=== PATIENT | male | born 1950 | race African-American/Black ===

== ENCOUNTER → 2016-03-14 | Outpatient (CLI) | payer OTHER ==
[~2016-03-14] MED LIST: ACET-1311 PO; ACET325T96 PO; ASPEC81 PO; BACL10TA PO; CHOL2000 PO; CLC100 PO; CRG3125 PO; DIPH1TAB PO; DOXY-300 PO; FLUT1INH PEG; HYDR-5688 PO; LSX20 PO; MAGIC CUP PO; NAPR-1169 PO; PRD20 PO; SENN-63 PO; SYMIN INH; TRMO115 EXT
[2016-03-14 10:49] LABS: MEAN CORPUSCULAR HGB CONC 32.9 g/dl (32-36); MEAN PLATELET VOLUME 11.3 fL (7.4-10.4); PLATELET COUNT 256 K/uL (130-400)
[2016-03-14 10:58] LABS: BLOOD UREA NITROGEN 17 mg/dl (7-18); BUN/CREATININE RATIO 18.1 (10-20); CALCIUM 8.8 mg/dl (8.5-10.1); CARBON DIOXIDE 26 mmol/L (21-32); CHLORIDE 109 mmol/L (98-107); CREATININE 0.95 mg/dl (0.60-1.40); GLUCOSE 95 mg/dl (70-99); POTASSIUM 4.2 mmol/L (3.5-5.1); SODIUM 141 mmol/L (136-145)
[2016-03-14 10:59] LABS: BASO ABS # 0.07 K/uL (0-0.2); COMPLETE YES; EOS % 8.2 %; HEMATOCRIT 40.1 % (42-52); IG% 0.3 %; LYMPH % 28.6 %; LYMPH ABS # 1.99 K/uL (1.2-3.4); MEAN CELL VOLUME 87.6 fL (80-100); MEAN CORPUSCULAR HEMOGLOBIN 28.8 pg (25-34); MONO % 8.3 %; NEUT % 53.6 %; RED BLOOD COUNT 4.58 M/uL (4.7-6.1); WHITE BLOOD COUNT 6.95 K/uL (4.8-10.8)
--- NOTE | 2016-03-18 12:54 | CODING QUERY MEDICAL NECESSITY ---
SUPPORTING DIAGNOSIS NEEDED A supporting diagnosis is required for the test/procedure performed on this patient in order for us to be reimbursed by the patient's insurance. Please provide a supporting diagnosis for the following test/procedure listed below next to the test name along with your signature. *If there is no additional diagnosis for this patient that would support the following test/procedure please document that below next to the test/procedure. Test(s)/Procedure(s) that require a supporting diagnosis: DOS 03/14 * Vitamin D DIAGNOSIS: Provider Signature: Date: Thank you Nancy Dias Health Information Management Once completed, please kindly fax back to [phone] For questions please call [phone]
== END ==
LOC: C.LABUPUNI 10:33
PROVIDERS: ATTEND Family Medicine
DX: R41.82 Altered mental status, unspecified (principal); M62.81 Muscle weakness (generalized)

== ENCOUNTER 2016-04-29 14:57 | Emergency (ER) | payer OTHER ==
[~2016-04-29] VITALS: Ht 185.4 cm; Wt 70.6 kg
[2016-04-29 14:57] VITALS: Ht 185.4 cm; Wt 70.6 kg
[~2016-04-29 14:57] MED LIST changes: -ACET-1311 PO; -ACET325T96 PO; -BACL10TA PO; -CHOL2000 PO; -DIPH1TAB PO; -DOXY-300 PO; -FLUT1INH PEG; -HYDR-5688 PO; -MAGIC CUP PO; -NAPR-1169 PO; -PRD20 PO; -SENN-63 PO; -TRMO115 EXT
[2016-04-29 15:38] LABS: BASO % 0.2 %; BASO ABS # 0.02 K/uL (0-0.2); COMPLETE YES; EOS % 4.9 %; HEMATOCRIT 41.7 % (42-52); IG% 0.4 %; LYMPH ABS # 1.07 K/uL (1.2-3.4); MEAN CELL VOLUME 86.7 fL (80-100); MEAN CORPUSCULAR HEMOGLOBIN 30.1 pg (25-34); MEAN CORPUSCULAR HGB CONC 34.8 g/dl (32-36); MEAN PLATELET VOLUME 10.6 fL (7.4-10.4); MONO % 4.4 %; NEUT % 77.1 %; PLATELET COUNT 230 K/uL (130-400); RED BLOOD COUNT 4.81 M/uL (4.7-6.1); WHITE BLOOD COUNT 8.21 K/uL (4.8-10.8)
--- NOTE | 2016-04-29 15:45 | DIAGNOSTIC IMAGING REPORT ---
PELVIS 1 OR 2 VIEW ROUTINE CLINICAL HISTORY: lower back pain COMPARISON STUDY: June 09, 2014 FINDINGS: The bones are mildly osteopenic. The study is mildly rotated. There are vascular calcifications present. There are no acute fractures. There is a possible old impaction deformity of the subcapital portion the right femoral neck. The finding remains unchanged from the prior 2014 study. IMPRESSION: No acute fractures. Electronically signed by: Dm Mitchell M.D. 04/29/2016 3:43 PM Dictated Date/Time: 04/29/2016 3:40 PM
[2016-04-29 15:46] LABS: PROTHROMBIN TIME (PATIENT) 10.7 SECONDS (9.0-12.0)
--- NOTE | 2016-04-29 15:46 | DIAGNOSTIC IMAGING REPORT ---
LUMBAR SPINE RADIOGRAPHS CLINICAL HISTORY: Fall. Lower back pain. COMPARISON: Lumbar spine radiographs June 09, 2014. FINDINGS: There is suspected osteopenia. A moderate compression fracture of T11 is unchanged since exam of June 09, 2014. Slight loss of height of the superior endplate of L5 is likely unchanged as well. No acute fracture is identified. There is mild to moderate multilevel degenerative disc disease and facet arthrosis of the lumbar spine. Sacroiliac joints are intact. IMPRESSION: 1. No acute lumbar spine fracture or subluxation identified by radiography. 2. Old T11 compression fracture. 3. Mild to moderate multilevel degenerative disc disease and facet arthrosis. Electronically signed by: Dale Montenegro M.D. 04/29/2016 3:45 PM Dictated Date/Time: 04/29/2016 3:43 PM
--- NOTE | 2016-04-29 16:01 | DIAGNOSTIC IMAGING REPORT ---
CT HEAD WITHOUT CONTRAST (CT) CLINICAL HISTORY: Head pain status post trauma COMPARISON STUDY: 01/29/2011 TECHNIQUE: Axial CT of the brain is performed from the vertex to the skull base. IV contrast was not administered for this examination. CT DOSE: 2149.93 mGy.cm FINDINGS: No intra or extra-axial mass lesions are visualized. There is no CT evidence of acute cortical infarction. There is no evidence of midline shift. There is no acute hemorrhage. No calvarial fractures are visualized. There are moderate white matter hypodensities likely on a small vessel basis. This is slightly progressive. There are bilateral basal ganglial lacunar infarcts. There are bilateral thalamic lacunar infarcts. Several these have occurred since the prior study. There is no evidence of pathologic ventricular dilatation. There is no evidence of acute sinusitis IMPRESSION: 1. Progressive white matter disease and progressive bilateral thalamic and basal ganglial lacunar infarcts 2. No evidence of acute intracranial injury Electronically signed by: Dm Mitchell M.D. 04/29/2016 4:00 PM Dictated Date/Time: 04/29/2016 3:56 PM
[2016-04-29 16:06] LABS: BUN/CREATININE RATIO 21.9 (10-20); CALCIUM 8.8 mg/dl (8.5-10.1); CREATININE 1.5 mg/dl (0.60-1.40); POTASSIUM 4.5 mmol/L (3.5-5.1)
[2016-04-29] MEDS ORDERED: ACET325T96 PO (16:13)
[2016-04-29] MEDS ORDERED: CHOL2000 PO (16:13)
[2016-04-29] MEDS ORDERED: FLUT1INH PEG (16:13)
[2016-04-29] MEDS ORDERED: NAPR-1169 PO (16:13)
[2016-04-29] MEDS ORDERED: MAGIC CUP PO (16:13)
[2016-04-29] MEDS ORDERED: OXYCODONE HCL IR 5 MG TAB (IMMEDIATE RELEASE) PO STA (16:26)
[2016-04-29 17:49] VITALS: BP 134/81; PULSE 73; TEMP 36.6; O2SAT 93
--- NOTE | 2016-04-29 21:14 | EMERGENCY ROOM VISIT NOTE ---
History Report prepared by Abhijeet: Jasmyn Dillard Under the Supervision of: Domo PerkinsO. First contact with patient: 14:57 Chief Complaint: HIP PAIN Stated Complaint: HIP PAIN, FALL @ 5 AM History of Present Illness The patient is a 65 year old male who presents to the Emergency Room from [facility] via EMS with complaints of persistent low back pain starting this morning. The patient reports falling about 10 hours ago while he was coming out of the bathroom. He denies hitting his head. He was found on the floor by [facility] staff. The patient has a history of dementia. He denies any blood thinners. The patient is currently at baseline per the nursing staff. He has no other complaints with the exception of lower back pain which radiates around both sides. Pt denies headache, change in vision, fevers, chest pain, shortness of breath, nausea, vomiting, diarrhea, pain with urination, melena, knee pain, ankle pain, or any other complaints. Source of History: patient Onset: this morning Position: back (lower) Timing: other (persistent) Associated Symptoms: No SOB, No chest pain, No diarrhea, No fevers, No headache, No nausea, No vomiting Review of Systems See HPI for pertinent positives & negatives. A total of 10 systems reviewed and were otherwise negative. 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 (8) Esophageal reflux (9) Reflux (10) Syncope (11) Syncope (12) Tobacco user Family History No pertinent family history Social History Smoking Status: Current Every Day Smoker Alcohol Use: heavy Drug Use: none Marital Status: single Occupation Status: unemployed Current/Historical Medications Scheduled Acetaminophen Tab (Tylenol), 650 MG PO Q6 Aspirin (Aspirin EC Low Dose), 81 MG PO QAM Carvedilol (Carvedilol), 3.125 MG PO BID Cholecalciferol (Vitamin D3), 1 CAP PO DAILY Docusate Sodium (Docusate Sodium), 100 MG PO BID Fluticasone Furoate-Vilanterol (Breo Ellipta), 1 PUFF PEG DAILY Naproxen (Naprosyn), 500 MG PO BID [Magic Cup], 1 CUP PO TID Allergies Coded Allergies: Penicillins (Verified Allergy, Unknown, RASH, 04/29/16) Physical Exam Vital Signs Date Time Temp Pulse Resp B/P Pulse Ox O2 Delivery O2 Flow Rate FiO2 04/29/16 17:49 36.6 73 18 134/81 93 Room Air 04/29/16 17:04 36.6 73 18 134/81 93 04/29/16 16:39 73 18 134/81 93 Room Air 04/29/16 14:57 36.6 73 18 134/82 93 Room Air Physical Exam GENERAL: Sitting up in bed, disheveled, no acute distress, nontoxic. HEAD: normal cephalic, atraumatic EYE EXAM: normal conjunctiva, PERRL and EOM's grossly intact OROPHARYNX: no exudate, no erythema, lips, buccal mucosa, and tongue normal and mucous membranes are moist NECK: supple, no nuchal rigidity, no adenopathy, non-tender CHEST: stable to compression anteriorly and posteriorly LUNGS: clear to auscultation. Normal chest wall mechanics HEART: no murmurs, S1 normal and S2 normal ABDOMEN: abdomen soft, non-tender, normo-active bowel sounds, no masses, no rebound or guarding. PELVIS: stable to compression anteriorly and posteriorly BACK: Back is symmetrical on inspection and there is no deformity, no CVA tenderness. Minimal midline lower lumbar tenderness along with bilateral paraspinal tenderness, no bruising, skin is intact. UPPER EXTREMITIES: full active and passive range of motion of all joints without tenderness to palpation LOWER EXTREMITIES: full active and passive range of motion of all joints without tenderness to palpation NEURO EXAM: Alert and oriented to person, not place or time. No focal deficits. No pain with range of motion of the extremities. GCS: 14. Medical Decision & Procedures ER Provider Diagnostic Interpretation: Xray results per the radiologist and my interpretation. CT results have been interpreted by the radiologist and reviewed by me. CT HEAD WITHOUT CONTRAST (CT) CLINICAL HISTORY: Head pain status post trauma COMPARISON STUDY: 01/29/2011 TECHNIQUE: Axial CT of the brain is performed from the vertex to the skull base. IV contrast was not administered for this examination. CT DOSE: 2149.93 mGy.cm FINDINGS: No intra or extra-axial mass lesions are visualized. There is no CT evidence of acute cortical infarction. There is no evidence of midline shift. There is no acute hemorrhage. No calvarial fractures are visualized. There are moderate white matter hypodensities likely on a small vessel basis. This is slightly progressive. There are bilateral basal ganglial lacunar infarcts. There are bilateral thalamic lacunar infarcts. Several these have occurred since the prior study. There is no evidence of pathologic ventricular dilatation. There is no evidence of acute sinusitis IMPRESSION: 1. Progressive white matter disease and progressive bilateral thalamic and basal ganglial lacunar infarcts 2. No evidence of acute intracranial injury Electronically signed by: Dm Mitchell M.D. 04/29/2016 4:00 PM Dictated Date/Time: 04/29/2016 3:56 PM LUMBAR SPINE RADIOGRAPHS CLINICAL HISTORY: Fall. Lower back pain. COMPARISON: Lumbar spine radiographs June 09, 2014. FINDINGS: There is suspected osteopenia. A moderate compression fracture of T11 is unchanged since exam of June 09, 2014. Slight loss of height of the superior endplate of L5 is likely unchanged as well. No acute fracture is identified. There is mild to moderate multilevel degenerative disc disease and facet arthrosis of the lumbar spine. Sacroiliac joints are intact. IMPRESSION: 1. No acute lumbar spine fracture or subluxation identified by radiography. 2. Old T11 compression fracture. 3. Mild to moderate multilevel degenerative disc disease and facet arthrosis. Electronically signed by: Dale Montenegro M.D. 04/29/2016 3:45 PM Dictated Date/Time: 04/29/2016 3:43 PM PELVIS 1 OR 2 VIEW ROUTINE CLINICAL HISTORY: lower back pain COMPARISON STUDY: June 09, 2014 FINDINGS: The bones are mildly osteopenic. The study is mildly rotated. There are vascular calcifications present. There are no acute fractures. There is a possible old impaction deformity of the subcapital portion the right femoral neck. The finding remains unchanged from the prior 2014 study. IMPRESSION: No acute fractures. Electronically signed by: Dm Mitchell M.D. 04/29/2016 3:43 PM Dictated Date/Time: 04/29/2016 3:40 PM Laboratory Results 04/29/16 15:25 Red Blood Count 4.81, Mean Corpuscular Volume 86.7, Mean Corpuscular Hemoglobin 30.1, Mean Corpuscular Hemoglobin Concent 34.8, Mean Platelet Volume 10.6, Neutrophils (%) (Auto) 77.1, Lymphocytes (%) (Auto) 13.0, Monocytes (%) (Auto) 4.4, Eosinophils (%) (Auto) 4.9, Basophils (%) (Auto) 0.2, Neutrophils # (Auto) 6.33, Lymphocytes # (Auto) 1.07, Monocytes # (Auto) 0.36, Eosinophils # (Auto) 0.40, Basophils # (Auto) 0.02 04/29/16 15:25 Test 04/29/16 15:25 White Blood Count 8.21 K/uL (4.8-10.8) Red Blood Count 4.81 M/uL (4.7-6.1) Hemoglobin 14.5 g/dL (14.0-18.0) Hematocrit 41.7 % (42-52) Mean Corpuscular Volume 86.7 fL (80-100) Mean Corpuscular Hemoglobin 30.1 pg (25-34) Mean Corpuscular Hemoglobin Concent 34.8 g/dl (32-36) Platelet Count 230 K/uL (130-400) Mean Platelet Volume 10.6 fL (7.4-10.4) Neutrophils (%) (Auto) 77.1 % Lymphocytes (%) (Auto) 13.0 % Monocytes (%) (Auto) 4.4 % Eosinophils (%) (Auto) 4.9 % Basophils (%) (Auto) 0.2 % Neutrophils # (Auto) 6.33 K/uL (1.4-6.5) Lymphocytes # (Auto) 1.07 K/uL (1.2-3.4) Monocytes # (Auto) 0.36 K/uL (0.11-0.59) Eosinophils # (Auto) 0.40 K/uL (0-0.5) Basophils # (Auto) 0.02 K/uL (0-0.2) RDW Standard Deviation 42.5 fL (36.4-46.3) RDW Coefficient of Variation 13.3 % (11.5-14.5) Immature Granulocyte % (Auto) 0.4 % Immature Granulocyte # (Auto) 0.03 K/uL (0.00-0.02) Prothrombin Time 10.7 SECONDS (9.0-12.0) Prothromb Time International Ratio 1.0 (0.9-1.1) Anion Gap 10.0 mmol/L (3-11) Est Creatinine Clear Calc Drug Dose 49.0 ml/min Estimated GFR () 55.8 Estimated GFR (Non- 48.2 BUN/Creatinine Ratio 21.9 (10-20) Calcium Level 8.8 mg/dl (8.5-10.1) Total Bilirubin 0.5 mg/dl (0.2-1) Direct Bilirubin 0.2 mg/dl (0-0.2) Aspartate Amino Transf (AST/SGOT) 24 U/L (15-37) Alanine Aminotransferase (ALT/SGPT) 45 U/L (12-78) Alkaline Phosphatase 117 U/L (45-117) Total Protein 8.1 gm/dl (6.4-8.2) Albumin 3.5 gm/dl (3.4-5.0) Lipase 198 U/L (73-393) Laboratory results per my review. Medications Administered Medications (Trade) Dose Ordered Sig/Chel Route Start Time Stop Time Status Last Admin Dose Admin Oxycodone HCl (Roxicodone Immediate Rel Tab) 5 mg NOW STAT PO 04/29/16 16:26 04/29/16 16:27 DC 04/29/16 16:43 5 MG ED Course ED COURSE: Vital signs were reviewed and showed normal. The patients medical record was reviewed The above diagnostic studies were performed and reviewed. ED treatments and interventions as stated above. 1457: The patient was evaluated in room A11B. A complete history and physical examination was performed. 1626: Oxycodone HCl 5 mg PO 1632: [facility] Upon reevaluation, the patient is resting comfortably. Based on the patients age, coexisting illnesses, exam and lab findings the decision to treat as an outpatient was made. The patient remained stable while under my care. The patient appeared well at the time of discharge. Medical Decision Differential diagnoses include major intracranial, cervical, spinal, thoracic, abdominal, pelvic and neurologic injury. Fracture, contusion, sprain, strain, laceration, abrasions included as well. Patient is a 65-year-old male who presents from heart side for a mechanical fall. He notes that he was going to the bathroom when he fell. He denies hitting his head. This was unwitnessed. His currently at his baseline. On exam he does have lower lumbar tenderness. CT head was unremarkable for any acute pathology that show chronic infarcts. Labs including CBC and BMP show creatinine 1.5. Patient is currently neurologically at his baseline per half-way. Discussed case with them. X-rays of his lumbar spine along with pelvis showed no acute fractures. He was updated bedside. He was given OxyIR. He is discharged follow-up with his primary care doctor at [facility]. Discussed with Pt concerning signs and symptoms to watch out for. Pt was instructed to follow up with their PCP and discussed with the patient their option to return to the ED at anytime for persistent or worsening symptoms. The appropriate anticipatory guidance and out-patient management, including indications for return to the emergency department, were explained at length to the patient and understood. Consults Time Called: 1627 Consulting Physician: Juliuscj Returned Call: 1632 I discussed the patient's case with [facility]. Impression Primary Impression: Low back strain Additional Impressions: Fall Myocardial infarct, old Scribe Attestation The scribe's documentation has been prepared under my direction and personally reviewed by me in its entirety. I confirm that the note above accurately reflects all work, treatment, procedures, and medical decision making performed by me. Departure Information Dispostion Home / Self-Care Referrals [facility] (PCP) Forms HOME CARE DOCUMENTATION FORM, IMPORTANT VISIT INFORMATION, WORK / SCHOOL INSTRUCTIONS Patient Instructions Back Pain - [facility], [facility] Additional Instructions Please follow up with your primary care doctor with in the next 24 hours. Any worsening of your symptoms, please return to the ED immediately. This includes fevers greater than 100.4, worsening pain, unable to left legs, passing out, or any other concerning signs or symptoms from your standpoint. Please take Motrin or Tylenol as needed for pain. He may benefit from walking with an assist for the next 1-2 days. Problem Qualifiers Primary Impression: Low back strain Encounter type: sequela Qualified Codes: S39.012S - Strain of muscle, fascia and tendon of lower back, sequela Additional Impressions: Fall Encounter type: sequela Qualified Codes: W19.XXXS - Unspecified fall, sequela
[2016-05-17] MEDS ORDERED: DOXY-300 PO (14:13)
[2016-05-17] MEDS ORDERED: PRD20 PO (14:13)
[2016-05-17] MEDS ORDERED: DIPH1TAB PO (14:13)
[2016-05-17] MEDS ORDERED: TRMO115 EXT (14:13)
== END 2016-04-29 17:48 | disposition home or self-care (01) ==
LOC: EDBD 14:57 → C.EDA 14:58
DX: S39.012A Strain of muscle, fascia and tendon of lower back, initial encounter (principal); W19.XXXS Unspecified fall, sequela; I25.2 Old myocardial infarction; I48.91 Unspecified atrial fibrillation; M47.816 Spondylosis without myelopathy or radiculopathy, lumbar region; Z79.82 Long term (current) use of aspirin; F17.200 Nicotine dependence, unspecified, uncomplicated

== ENCOUNTER → 2016-05-08 | Outpatient (CLI) | payer OTHER ==
[~2016-05-08] MED LIST changes: +ACET-1311 PO; +ACET325T96 PO; +BACL10TA PO; +CHOL2000 PO; +DIPH1TAB PO; +DOXY-300 PO; +FLUT1INH PEG; +HYDR-5688 PO; -LSX20 PO; +MAGIC CUP PO; +NAPR-1169 PO; +PRD20 PO; +SENN-63 PO; -SYMIN INH; +TRMO115 EXT
[2016-05-08 10:11] LABS: BLOOD UREA NITROGEN 49 mg/dl (7-18); BUN/CREATININE RATIO 22.4 (10-20); CARBON DIOXIDE 19 mmol/L (21-32); CHLORIDE 111 mmol/L (98-107); GLUCOSE 112 mg/dl (70-99); POTASSIUM 4.2 mmol/L (3.5-5.1); SODIUM 141 mmol/L (136-145)
== END ==
LOC: C.LABUPUNI 09:51
PROVIDERS: ATTEND Family Medicine
DX: M62.81 Muscle weakness (generalized) (principal)

== ENCOUNTER → 2016-05-09 | Outpatient (CLI) | payer OTHER ==
[2016-05-09 10:05] LABS: BLOOD UREA NITROGEN 42 mg/dl (7-18); BUN/CREATININE RATIO 21.1 (10-20); CALCIUM 8.4 mg/dl (8.5-10.1); CARBON DIOXIDE 19 mmol/L (21-32); CHLORIDE 114 mmol/L (98-107); GLUCOSE 98 mg/dl (70-99); POTASSIUM 4.5 mmol/L (3.5-5.1); SODIUM 141 mmol/L (136-145)
== END ==
LOC: C.LABUPUNI 09:17
PROVIDERS: ATTEND Family Medicine
DX: R79.89 Other specified abnormal findings of blood chemistry (principal)

== ENCOUNTER 2016-05-10 22:56 | Inpatient (IN) | payer OTHER ==
[~2016-05-10] VITALS: Ht 185.4 cm; Wt 65.3 kg
[~2016-05-10 22:56] MED LIST changes: -ACET-1311 PO; -BACL10TA PO; -DIPH1TAB PO; -DOXY-300 PO; -HYDR-5688 PO; -PRD20 PO; -SENN-63 PO; -TRMO115 EXT
[2016-05-11 08:45] VITALS: BP 114/60; PULSE 65; TEMP 36.5; O2SAT 97; Ht 185.4 cm; Wt 65.3 kg
[2016-05-11] MEDS ORDERED: SENN-63 PO (10:09)
[2016-05-11] MEDS ORDERED: HYDR-5688 PO (10:17)
[2016-05-11] MEDS ORDERED: ACET-1311 PO (10:20)
[2016-05-11] MEDS ORDERED: BACL10TA PO (10:23)
[2016-05-11] MEDS ORDERED: DEXTROSE IV SCH (10:45)
[2016-05-11] MEDS ORDERED: STERILE WATER IV SCH (10:45)
[2016-05-11 10:52] LABS: URINE APPEARANCE CLEAR (CLEAR); URINE BILIRUBIN NEG (NEG); URINE COLOR YELLOW; URINE NITRITE NEG (NEG); URINE SPECIFIC GRAVITY 1.012 (1.000-1.030); UROBILINOGEN NEG (NEG)
--- NOTE | 2016-05-11 10:55 | History and Physical ---
History & Physical Date & Time of Service: May 11, 2016 at 10:04 Chief Complaint: Renal Failure Primary Care Physician: [facility] [place] History of Present Illness Mr cotter is a 65 yo M who has a h/o Afib not on anticoagulation, heavy alcohol use, DJD in lumbar spine, GERD, tobacco us hx who was recently admitted for a fall with no fractures found sent from [facility] with DARIO. According the his nurse from [facility], patient is supposed to be on honey-thickened liquids however patient does not like this. He has been "sneaking" water the past few weeks, however, his water source has been shut down and has been unable to drink water. He has been refusing honey-thickened liquids so he has not had much fluid intake since then. He was started on 1/2NSS the past few days and has received a total of 2-3L over the past few days. Nurse also reports that since his fall in Apr, patient has been in pain, however , patient is a poor historian and unable to tell me much about his pain. No fractures were found then, however, nurse Albina is concerned because he has been less independent with ADLs whereas before, he was completely independent. He also has had a rash throughout his body and a few blisters on the soles of his feet. The only new medication for him is Albion from the Apr discharge, but the rashes have only been present the past few days/weeks. He otherwise does not complain of chest pain, sob, coughing, fevers/chills. No abd pain, no urinary symptoms, no constipation/diarrhea. He reports decreased appetite and being thirsty but unable to tell me why or further characterize this. He has underlying Alzheimer's disease and is a very poor historian. PAST MEDICAL AND SURGICAL HISTORY: Atrial fibrillation, alcohol intoxication, cardiomegaly, degenerative joint disease in shoulder, lumbar degenerative disc disease, gastroesophageal reflux disease, syncope history, tobacco use history. Past Medical/Surgical History Medical Problems: (1) A-fib Status: Chronic (2) Alcohol intoxication Status: Resolved (3) Cardiomegaly Status: Chronic (4) Chronic cough Status: Chronic (5) Degenerative joint disease, shoulder, right Status: Chronic (6) Degenerative joint disease, shoulder, right Status: Chronic (7) DJD (degenerative joint disease) of lumbar spine Status: Chronic (8) Esophageal reflux Status: Chronic (9) Reflux Status: Resolved (10) Syncope Status: Chronic (11) Syncope Status: Resolved (12) Tobacco user Status: Chronic Family History No pertinent family history Unable to obtain, very poor historian. Social History Smoking Status: Former Smoker (reoprts he gave it up a year ago) Alcohol Use: h/o heavy alcohol use, unable to give more details Drug Use: none Marital Status: single Housing status: lives alone Occupational Status: unemployed Immunizations History of Influenza Vaccine: No History of Tetanus Vaccine?: UNSURE History of Pneumococcal: No History of Hepatitis B Vaccine: Unknown Allergies Coded Allergies: Penicillins (Verified Allergy, Unknown, RASH, 04/29/16) Home Medications Scheduled Aspirin (Aspirin EC Low Dose), 81 MG PO QAM Carvedilol (Carvedilol), 3.125 MG PO BID Cholecalciferol (Vitamin D3), 1 CAP PO DAILY Docusate Sodium (Docusate Sodium), 100 MG PO BID Fluticasone Furoate-Vilanterol (Breo Ellipta), 1 PUFF PEG DAILY Hydrocodone/Acetaminophen 5MG/325MG (Albion 5MG/325MG), 1 TABLET PO Q4H while awake Sennosides (Senokot), 2 TAB PO DAILY [Magic Cup], 1 CUP PO TID Scheduled PRN Acetaminophen (Tylenol), 650 MG PO Q6H PRN for Pain or Fever Baclofen (Lioresal), 10 MG PO Q6 PRN for Muscle Spasms Review of Systems ROS as per HPI. Rest of ROS negative. Physical Exam Vital Signs Vital Signs Date Time Temp Pulse Resp B/P Pulse Ox O2 Delivery O2 Flow Rate FiO2 05/11/16 08:45 36.5 65 16 114/60 97 Room Air NAD, coherent and fluent speech, poor historian eomi, perrl s1 s2 rrr, no murmurs appreciated ctab no w/r/r abd soft, nt/nd +BS no LE edema multiple skin lesions noted throughout his truck and back, some in extremities cn 2-12 grossly intact, however, nasolabial fold appears to be diminished on the right side and left arm and left leg strength are diminished compared to right-side Diagnostics Diagnostic Radiology TWO VIEW CHEST CLINICAL HISTORY: Cough. FINDINGS: AP and lateral chest radiographs are compared to study dated 11/15/2014. Correlation is made with chest CT dated 01/30/2011. The AP view is degraded by patient rotation. The cardiomediastinal silhouette is unremarkable. There is atherosclerotic calcification of the thoracic aorta. Emphysema and chronic interstitial thickening is similar to previous. Bibasilar airspace opacities are observed. No large pleural effusion or pneumothorax is seen. The skeletal structures are osteopenic. Degenerative change and hyperkyphosis are noted in the thoracic spine. Compression deformities are seen at the thoracolumbar junction. IMPRESSION: 1. Emphysema. 2. There are bibasilar airspace opacities. This could represent atelectasis and/or an infectious/inflammatory pneumonitis. Clinical correlation will be required. 3. No pleural effusion is seen Electronically signed by: Addi Fairbanks M.D. 05/11/2016 1:33 PM Impression Assessment and Plan 1. DARIO - baseline appears to be 0.9 from Mar 2016 - creat since Apr has been 1.9-2.0 of unclear etiology - will bladder scan him to rule out urinary retention and obstruction - no NSAIDs per documented medication list - does have decreased po intake, so possibility of volume depletion - will obtain urine lytes, UA, renal US to evaluate renal parenchyma - will monitor BP for hypotension - will start him on maintenance IV fluids d5 1/2 NSS at 75/h - avoid NSAIDs, non-emergent contrast studies, hypotension 2. Decreased functionality - right facial nasolabial fold diminished with left-sided extremities weakness - prior CT in Apr showed basal ganglia lacunar infarcts, however, no e/o r [facility] territory prior cva was reported - will need to determine chronicity and call [facility] - PT/OT 3. COPD - h/o heavy smoking - cont home regimen - stable at this time - clinically no pneumonia 4. dvt ppx
[2016-05-11] MEDS ORDERED: ACETAMINOPHEN 325 MG TAB PO PRN (11:00)
[2016-05-11] MEDS ORDERED: BACLOFEN 10 MG TAB PO PRN (11:00)
[2016-05-11 11:02] LABS: MANUAL MICROSCOPIC REQUIRED? NO; REVIEW REQ? NO
[2016-05-11 12:33] LABS: BASO % 0.8 %; BASO ABS # 0.07 K/uL (0-0.2); EOS % 19.4 %; HEMATOCRIT 38.3 % (42-52); IG% 0.2 %; LYMPH ABS # 1.95 K/uL (1.2-3.4); MEAN CELL VOLUME 85.5 fL (80-100); MEAN CORPUSCULAR HEMOGLOBIN 29.2 pg (25-34); MEAN PLATELET VOLUME 9.7 fL (7.4-10.4); MONO % 4.2 %; NEUT % 54.4 %; PLATELET COUNT 316 K/uL (130-400); RED BLOOD COUNT 4.48 M/uL (4.7-6.1); WHITE BLOOD COUNT 9.27 K/uL (4.8-10.8)
[2016-05-11 12:35] LABS: COMPLETE YES; MEAN CORPUSCULAR HGB CONC 34.2 g/dl (32-36)
[2016-05-11 13:04] LABS: ALB/GLOB RATIO 0.7 (0.9-2); BUN/CREATININE RATIO 16.5 (10-20); CALCIUM 8.7 mg/dl (8.5-10.1); CREATININE 2.1 mg/dl (0.60-1.40); MAGNESIUM 2.2 mg/dl (1.8-2.4); PHOSPHORUS 2.8 mg/dl (2.5-4.9); POTASSIUM 4.6 mmol/L (3.5-5.1)
--- NOTE | 2016-05-11 13:35 | DIAGNOSTIC IMAGING REPORT ---
TWO VIEW CHEST CLINICAL HISTORY: Cough. FINDINGS: AP and lateral chest radiographs are compared to study dated 11/15/2014. Correlation is made with chest CT dated 01/30/2011. The AP view is degraded by patient rotation. The cardiomediastinal silhouette is unremarkable. There is atherosclerotic calcification of the thoracic aorta. Emphysema and chronic interstitial thickening is similar to previous. Bibasilar airspace opacities are observed. No large pleural effusion or pneumothorax is seen. The skeletal structures are osteopenic. Degenerative change and hyperkyphosis are noted in the thoracic spine. Compression deformities are seen at the thoracolumbar junction. IMPRESSION: 1. Emphysema. 2. There are bibasilar airspace opacities. This could represent atelectasis and/or an infectious/inflammatory pneumonitis. Clinical correlation will be required. 3. No pleural effusion is seen Electronically signed by: Addi Fairbanks M.D. 05/11/2016 1:33 PM Dictated Date/Time: 05/11/2016 1:31 PM
[2016-05-11] MEDS: D5W AND 1/2NSS 1,000 ML IV SCH (13:48)
[2016-05-11 15:57] VITALS: BP 116/72; PULSE 68; TEMP 36.8; O2SAT 95
--- NOTE | 2016-05-11 18:31 | DIAGNOSTIC IMAGING REPORT ---
CT SCAN OF THE BRAIN WITHOUT IV CONTRAST CLINICAL HISTORY: Left-sided weakness. Right-sided facial droop. COMPARISON STUDY: CT of the brain dated 04/29/2016. TECHNIQUE: Unenhanced axial CT scan of the brain is performed from the vertex to the skull base. CT DOSE: 1151.75 mGy.cm FINDINGS: Brain parenchyma: There are age-related involutional changes noting moderate to advanced confluent subcortical and periventricular microangiopathic change. Chronic lacunar infarcts are present within both thalami and the basal ganglia bilaterally. There is no hemorrhage, mass effect, or evidence of acute territorial ischemia by CT criteria. [place]ak-white matter is preserved. No extra-axial fluid collection is seen. Ventricles, sulci, cisterns: Prominent secondary to involutional change. Intracranial vasculature: There is atherosclerotic calcification of the cavernous carotid and vertebral arteries. Calvarium: Unremarkable. Sinuses and mastoids: The visualized paranasal sinuses are clear. The mastoid air cells are well pneumatized. Orbits: The bony orbits are grossly intact. IMPRESSION: Senescent changes as above. There is no hemorrhage, mass effect, or evidence of acute territorial ischemia by CT criteria. Electronically signed by: Addi Fairbanks M.D. 05/11/2016 6:29 PM Dictated Date/Time: 05/11/2016 6:26 PM
[2016-05-11] MEDS ORDERED: NURSING VERBAL MED ORDER ONE (18:45)
[2016-05-11] MEDS: HEPARIN SOD 5000 UNIT/0.5 ML CARP SQ SCH (21:00)
[2016-05-11] MEDS: DOCUSATE SODIUM 100 MG CAP PO SCH (21:03)
[2016-05-11] MEDS: CARVEDILOL 3.125 MG TAB PO SCH (21:03)
[2016-05-11] MEDS: MoRPHine SULFATE 2 MG/ML CARP IV PRN (21:22)
[2016-05-12 00:08] VITALS: BP 117/78; PULSE 78; TEMP 37.1; O2SAT 95
[2016-05-12] MEDS: D5W AND 1/2NSS 1,000 ML IV SCH (02:57)
[2016-05-12 07:30] VITALS: BP 116/70; PULSE 63; TEMP 36.6; O2SAT 97
[2016-05-12 07:33] LABS: BASO % 0.3 %; BASO ABS # 0.03 K/uL (0-0.2); COMPLETE YES; EOS % 17.4 %; HEMATOCRIT 37.8 % (42-52); IG% 0.1 %; LYMPH % 17.2 %; LYMPH ABS # 1.56 K/uL (1.2-3.4); MEAN CELL VOLUME 86.3 fL (80-100); MEAN CORPUSCULAR HEMOGLOBIN 29.5 pg (25-34); MEAN CORPUSCULAR HGB CONC 34.1 g/dl (32-36); MONO % 7.2 %; NEUT % 57.8 %; PLATELET COUNT 317 K/uL (130-400); RED BLOOD COUNT 4.38 M/uL (4.7-6.1); WHITE BLOOD COUNT 9.08 K/uL (4.8-10.8)
[2016-05-12 08:08] LABS: BUN/CREATININE RATIO 14.7 (10-20); CALCIUM 8.3 mg/dl (8.5-10.1); CREATININE 2.2 mg/dl (0.60-1.40); POTASSIUM 4.4 mmol/L (3.5-5.1)
[2016-05-12] MEDS: DOCUSATE SODIUM 100 MG CAP PO SCH ×2 (08:44→20:03)
[2016-05-12] MEDS: SENNA 8.6 MG TAB PO SCH (08:45)
[2016-05-12] MEDS: ASPIRIN 81 MG ECTAB PO SCH (08:45)
[2016-05-12] MEDS: CARVEDILOL 3.125 MG TAB PO SCH ×2 (08:45→20:03)
[2016-05-12] MEDS: HEPARIN SOD 5000 UNIT/0.5 ML CARP SQ SCH ×2 (08:52→19:59)
--- NOTE | 2016-05-12 09:47 | Progress Note ---
Subjective Date of Service: May 12, 2016. Subjective Pt evaluation today including: conversation w/ patient, physical exam, chart review, lab review, review of studies, review of inpatient medication list Patient does not complain of any pain. No chest pain, no sob. No urinary symptoms. No abd pain, no n/v, no constipation/diarrhea. Problem List Medical Problems: (1) Fall Status: Acute (2) Low back strain Status: Acute Review of Systems All Other Systems: Reviewed and Negative Medications Acetaminophen (Tylenol Tab) 650 mg Q6H PRN PO; Start 05/11/16 at 11:00; Stop at 10:59 Aspirin (Ecotrin Tab) 81 mg QAM PO Last administered on 05/12/16 08:45; Admin Dose 81 MG; Start 05/12/16 at 08:00; Stop 06/11/16 at 07:59 Baclofen (Lioresal Tab) 10 mg Q6 PRN PO; Start 05/11/16 at 11:00; Stop 06/10/16 at 10:59 Carvedilol (Coreg Tab) 3.125 mg BID PO Last administered on 05/12/16 08:45; Admin Dose 3.125 MG; Start 05/11/16 at 20:00; Stop 06/10/16 at 19:59 Dextrose (D5W 1000ml) 1,000 ml @ 75 mls/hr [id number] IV Last administered on 11:00; Admin Dose 75 MLS/HR; Start 05/12/16 at 08:45; Stop 06/11/16 at 08:44 Diphenhydramine HCl (Benadryl Cap) 25 mg Q8H PRN PO Last administered on 11:02; Admin Dose 25 MG; Start 05/12/16 at 08:45; Stop 06/11/16 at 08:44 Docusate Sodium (coLACE CAP) 100 mg BID PO Last administered on 05/12/16 08:44; Admin Dose 100 MG; Start 05/11/16 at 20:00; Stop 06/10/16 at 19:59 Heparin Sodium (Porcine) 5000 unit 5,000 unit Q12 SQ; Start 05/11/16 at 21:00; Stop 06/10/16 at 20:59 Miscellaneous Information (Order Awaiting Action) 1 ea QS N/A; Start 05/11/16 at 16:00; Stop 06/10/16 at 15:59 Morphine Sulfate (MoRPHine SULFATE INJ) 1 mg Q8H PRN IV Last administered on 21:22; Admin Dose 1 MG; Start 05/11/16 at 11:00; Stop 05/25/16 at 10:59 Senna (Senokot Tab) 17.2 mg DAILY PO Last administered on 05/12/16 08:45; Admin Dose 17.2 MG; Start 05/12/16 at 08:00; Stop 06/11/16 at 07:59 Objective Vital Signs Date Time Temp Pulse Resp B/P Pulse Ox O2 Delivery O2 Flow Rate FiO2 05/12/16 02:20 Room Air 05/12/16 00:08 37.1 78 20 117/78 95 Room Air 05/11/16 22:00 Room Air 05/11/16 16:00 Room Air 05/11/16 15:57 36.8 68 16 116/72 95 Room Air Physical Exam Comments: nad, coherent but very poor historian eomi, perrl s1 s2 rrr ctab no w/r/r abd soft nt nd +BS no LE edema neuro exam unchanged Laboratory Results Last 24 Hours Test 05/11/16 10:30 05/11/16 12:27 05/12/16 07:16 Urine Color YELLOW Urine Appearance CLEAR Urine pH 5.0 Urine Specific [place] 1.012 Urine Protein NEG Urine Glucose (UA) NEG Urine Ketones 1+ Urine Occult Blood NEG Urine Nitrite NEG Urine Bilirubin NEG Urine Urobilinogen NEG Urine Leukocyte Esterase NEG Urine Random Creatinine 120.0 mg/dl Urine Random Sodium 44 mEq/L Urine Random Potassium 27.3 mEq/L Urine Random Chloride 55 mEq/L White Blood Count 9.27 K/uL 9.08 K/uL Red Blood Count 4.48 M/uL 4.38 M/uL Hemoglobin 13.1 g/dL 12.9 g/dL Hematocrit 38.3 % 37.8 % Mean Corpuscular Volume 85.5 fL 86.3 fL Mean Corpuscular Hemoglobin 29.2 pg 29.5 pg Mean Corpuscular Hemoglobin Concent 34.2 g/dl 34.1 g/dl Platelet Count 316 K/uL 317 K/uL Mean Platelet Volume 9.7 fL 10.0 fL Neutrophils (%) (Auto) 54.4 % 57.8 % Lymphocytes (%) (Auto) 21.0 % 17.2 % Monocytes (%) (Auto) 4.2 % 7.2 % Eosinophils (%) (Auto) 19.4 % 17.4 % Basophils (%) (Auto) 0.8 % 0.3 % Neutrophils # (Auto) 5.04 K/uL 5.25 K/uL Lymphocytes # (Auto) 1.95 K/uL 1.56 K/uL Monocytes # (Auto) 0.39 K/uL 0.65 K/uL Eosinophils # (Auto) 1.80 K/uL 1.58 K/uL Basophils # (Auto) 0.07 K/uL 0.03 K/uL RDW Standard Deviation 41.2 fL 42.3 fL RDW Coefficient of Variation 13.2 % 13.2 % Immature Granulocyte % (Auto) 0.2 % 0.1 % Immature Granulocyte # (Auto) 0.02 K/uL 0.01 K/uL Sodium Level 141 mmol/L 143 mmol/L Potassium Level 4.6 mmol/L 4.4 mmol/L Chloride Level 113 mmol/L 115 mmol/L Carbon Dioxide Level 15 mmol/L 17 mmol/L Anion Gap 13.0 mmol/L 11.0 mmol/L Blood Urea Nitrogen 35 mg/dl 32 mg/dl Creatinine 2.10 mg/dl 2.20 mg/dl Est Creatinine Clear Calc Drug Dose 32.4 ml/min 30.9 ml/min Estimated GFR () 37.2 35.1 Estimated GFR (Non- 32.1 30.3 BUN/Creatinine Ratio 16.5 14.7 Random Glucose 81 mg/dl 147 mg/dl Calcium Level 8.7 mg/dl 8.3 mg/dl Phosphorus Level 2.8 mg/dl Magnesium Level 2.2 mg/dl Total Bilirubin 0.5 mg/dl Aspartate Amino Transf (AST/SGOT) 19 U/L Alanine Aminotransferase (ALT/SGPT) 36 U/L Alkaline Phosphatase 114 U/L Total Protein 7.5 gm/dl Albumin 3.1 gm/dl Globulin 4.4 gm/dl Albumin/Globulin Ratio 0.7 RENAL ULTRASOUND HISTORY: Renal insufficiency eval renal parenchyma and obstruction, emilee COMPARISON: None. FINDINGS: Right kidney: Maximum dimension 10.8 cm. No evidence for hydronephrosis. Mild renal cortical thinning Left kidney: Maximum dimension 11.9 cm. No evidence for hydronephrosis. Mild cortical thinning Bladder: No bladder wall thickening. The bilateral ureteral jets were identified. IMPRESSION: Mild cortical thinning of the kidneys. Study is otherwise negative. No evidence for hydronephrosis. Electronically signed by: Neto Tay M.D. 05/12/2016 10:47 AM Assessment and Plan 1. EMILEE - baseline appears to be 0.9 from Mar 2016 - creat since Apr has been 1.9-2.0 of unclear etiology - FENA<1, indicative of pre-renal etiology - no urinary retention and no hydro on renal US - unchanged creat despite IVF and adequate po intake - does note diffuse rash however, UA no e/o blood or protein, no WBC - medication reviewed, none that would cause AIN - doubt HSP, AIN, or any GN without blood, protein or WBC in urine - renal US did reveal renal cortical thinning which may indicate some underlying CKD, although kidney sizes are WNL 2. Decreased functionality - right facial nasolabial fold diminished with left-sided extremities weakness - prior CT in Apr showed basal ganglia lacunar infarcts, however, no e/o r mca territory prior cva was reported - weakness seems to have occurred after the fall - PT/OT eval - repeat CT unchanged - likely progression of infarcts causing decreased functionality 3. COPD - h/o heavy smoking - cont home regimen - stable at this time - clinically no pneumonia 4. Aspiration hx - swallow eval - no thin liquids 5. dvt ppx
--- NOTE | 2016-05-12 10:49 | DIAGNOSTIC IMAGING REPORT ---
RENAL ULTRASOUND HISTORY: Renal insufficiency eval renal parenchyma and obstruction, emilee COMPARISON: None. FINDINGS: Right kidney: Maximum dimension 10.8 cm. No evidence for hydronephrosis. Mild renal cortical thinning Left kidney: Maximum dimension 11.9 cm. No evidence for hydronephrosis. Mild cortical thinning Bladder: No bladder wall thickening. The bilateral ureteral jets were identified. IMPRESSION: Mild cortical thinning of the kidneys. Study is otherwise negative. No evidence for hydronephrosis. Electronically signed by: Neto Tay M.D. 05/12/2016 10:47 AM Dictated Date/Time: 05/12/2016 10:46 AM
[2016-05-12] MEDS: DEXTROSE 5% 1000ML 1,000 ML IV SCH ×3 (11:00→20:16)
[2016-05-12 17:49] VITALS: BP 124/64; PULSE 66; TEMP 36.4; O2SAT 98
[2016-05-12] MEDS: MoRPHine SULFATE 2 MG/ML CARP IV PRN (20:02)
[2016-05-12] MEDS ORDERED: ATORVASTATIN 20 MG TAB PO SCH (21:00)
[2016-05-13 00:22] VITALS: BP 119/69; PULSE 80; TEMP 36.8; O2SAT 97
[2016-05-13] MEDS: MoRPHine SULFATE 2 MG/ML CARP IV PRN ×2 (05:20→15:18)
[2016-05-13 07:10] VITALS: BP 117/61; PULSE 70; TEMP 36.3; O2SAT 96
[2016-05-13 07:19] LABS: CALCIUM 8.1 mg/dl (8.5-10.1); CREATININE 2.5 mg/dl (0.60-1.40); POTASSIUM 4.7 mmol/L (3.5-5.1)
[2016-05-13 07:22] LABS: CHOLESTEROL/HDL RATIO 3.6
[2016-05-13] MEDS: ASPIRIN 81 MG ECTAB PO SCH (07:55)
[2016-05-13] MEDS: CARVEDILOL 3.125 MG TAB PO SCH (07:55)
[2016-05-13] MEDS: SENNA 8.6 MG TAB PO SCH (07:55)
[2016-05-13] MEDS: DOCUSATE SODIUM 100 MG CAP PO SCH (07:55)
[2016-05-13] MEDS: HEPARIN SOD 5000 UNIT/0.5 ML CARP SQ SCH ×2 (08:01→20:53)
--- NOTE | 2016-05-13 11:57 | DIAGNOSTIC IMAGING REPORT ---
VIDEO SWALLOW HISTORY: assess for aspiration, please schedule a time on 05/13/16 TECHNIQUE: Video fluoroscopic evaluation of swallowing was performed in the AP and lateral projections by the speech pathology staff. The patient is fed nectar-thick and thin liquid barium, a barium coated wafer, and barium pudding. FLUOROSCOPY TIME: 2.9 minutes. A cine loop was submitted.. COMPARISON STUDY: None. FINDINGS: There is chiara aspiration with the thin liquid barium which was mostly silent. There is also silent aspiration with the nectar thick liquid barium which is primarily due to the overall poor pharyngeal constriction with no significant epiglottic deflection. There is also aspiration identified during nectar thick and honey thick liquid barium. IMPRESSION: 1. Aspiration seen throughout the examination. 2. Please see the speech pathologist report for detailed findings and recommendations. Electronically signed by: Gino Pelaez M.D. 05/13/2016 11:55 AM Dictated Date/Time: 05/13/2016 11:53 AM
[2016-05-13 15:48] VITALS: BP 121/68; PULSE 80; TEMP 36.5; O2SAT 98
[2016-05-13] MEDS ORDERED: ONDANSETRON INJ 2 MG/ML 2 ML VIAL IV PRN (16:15)
[2016-05-13] MEDS: D5W AND 1/2NSS 1,000 ML IV SCH (16:23)
--- NOTE | 2016-05-13 17:19 | Hospitalist Progress Note ---
Hospitalist Progress Note Date of Service May 13, 2016. Subjective Pt evaluation today including: conversation w/ patient, physical exam, chart review, lab review, review of studies, review of inpatient medication list The patient did look at me today, but did not converse. He did nod his head a few times upon my questioning. Later in the day, I spoke with speech therapy who reported that the patient was experiencing significant "essentially constant " aspiration while swallowing. I searched chart for POA or contact acid plant operator and the patient has himself listed for both. I called [facility] for assistance, but got voice message. I will ask social service to assist on identifying who the POA for Mr. Diggs. Additional Comments: A 10 system review was performed and all were either negative by a head-shake or no response at all. Objective Vital Signs Date Time Temp Pulse Resp B/P Pulse Ox O2 Delivery O2 Flow Rate FiO2 05/13/16 15:48 36.5 80 20 121/68 98 Room Air 05/13/16 08:10 Room Air 05/13/16 07:10 36.3 70 18 117/61 96 Room Air 05/13/16 00:22 36.8 80 20 119/69 97 Room Air 05/13/16 00:00 Room Air 05/12/16 20:00 Room Air 05/12/16 17:49 36.4 66 24 124/64 98 Room Air Physical Exam Notes: GEN: Awake. appears to be watching TV. No obvious distress. HEENT: Tm's intact, no inflammation, EOMI, PERRLA, MMM Neck: Soft, supple Lungs: CTA b/l, no r/r/w Heart: REG, nrl S1S2 without murmurs, rubs or gallops Abdomen: Soft, NT, ND, + BS EXT: No C/C/E NEURO: moving all 4 extremities. Skin: warm, dry, no rashes PSYCH: Non-conversant. Laboratory Results Last 24 Hours Test 05/13/16 06:33 Sodium Level 143 mmol/L Potassium Level 4.7 mmol/L Chloride Level 114 mmol/L Carbon Dioxide Level 18 mmol/L Anion Gap 11.0 mmol/L Blood Urea Nitrogen 30 mg/dl Creatinine 2.50 mg/dl Est Creatinine Clear Calc Drug Dose 27.2 ml/min Estimated GFR () 30.1 Estimated GFR (Non- 26.0 BUN/Creatinine Ratio 12.0 Random Glucose 135 mg/dl Calcium Level 8.1 mg/dl Triglycerides Level 92 mg/dl Cholesterol Level 132 mg/dl HDL Cholesterol 37 mg/dl LDL Cholesterol, Calculated 77 mg/dl VLDL Cholesterol, Calculated 18 mg/dl Cholesterol/HDL Ratio 3.6 Assessment and Plan 1) Chronic aspiration - recommendation is to be NPO and place PEG tube or permissive aspiration and address consequences. Will need to discuss with POA when I become aware of who to call. 2) Acute on chronic renal insufficiency - stable, though not at what was previous baseline. 3) COPD - I feel he is controlled currently 4) Alzheimer's Dementia - Feel we need to talk to POA for decision making. 5) Diffuse CVD - It seems reasonable that a new insult has caused further decline in his abilities. I will make NPO tonight and give IVF. Discuss with POA when determined.
[2016-05-13 23:52] VITALS: BP 119/73; PULSE 82; TEMP 36.6; O2SAT 96
[2016-05-14] MEDS: D5W AND 1/2NSS 1,000 ML IV SCH ×2 (05:03→17:15)
[2016-05-14 06:10] LABS: HEMATOCRIT 42.2 % (42-52); MEAN CELL VOLUME 85.3 fL (80-100); MEAN CORPUSCULAR HEMOGLOBIN 29.1 pg (25-34); MEAN CORPUSCULAR HGB CONC 34.1 g/dl (32-36); MEAN PLATELET VOLUME 9.9 fL (7.4-10.4); PLATELET COUNT 345 K/uL (130-400); RED BLOOD COUNT 4.95 M/uL (4.7-6.1); WHITE BLOOD COUNT 13.43 K/uL (4.8-10.8)
[2016-05-14 07:22] VITALS: BP 122/69; PULSE 81; TEMP 36.7; O2SAT 98
[2016-05-14] MEDS: HEPARIN SOD 5000 UNIT/0.5 ML CARP SQ SCH (08:31)
[2016-05-14] MEDS: DiphenhydrAMINE HCL 50 MG/ML VIAL IV PRN ×3 (08:34→23:52)
[2016-05-14] MEDS ORDERED: METHYLPREDNISOLONE IV 125 MG in SYRINGE 0 ML IV ONE (10:00)
--- NOTE | 2016-05-14 11:48 | CONSULTATION REPORT ---
DATE OF CONSULTATION: 05/14/2016 DATE OF CONSULTATION: 05/14/2016. CHIEF COMPLAINT: Rash blister formation on the right foot. HISTORY OF PRESENT ILLNESS: The patient was admitted to [facility] 2 days prior for the evaluation of weakness, renal failure and decreased activity. The patient had a minimal rash upon admission, which apparently has expanded. The patient is confused when asking questions and is unable to give me any pertinent history in regards to when this rash may have occurred. The patient denies any pain in the area except for some tenderness when palpation of the plantar surface of the right foot. Further history was deferred at this time due to the patient's current mental status. PAST MEDICAL HISTORY: Consistent for atrial fibrillation, chronic alcoholism, cardiomegaly, degenerative joint disease, GERD, degenerative disc disease and syncope. MEDICATIONS: Noted in the nursing notes and were reviewed. ALLERGIES: PENICILLINS. REVIEW OF SYSTEMS: Was deferred at this time due to the patient's current mental status changes. PHYSICAL EXAMINATION: GENERAL: The patient is lying in hospital bed in no acute distress, alert and cooperative throughout the examination. VITAL SIGNS: Were reviewed and found to be unremarkable. The patient is afebrile. HEAD, EYES, EARS, NOSE, AND THROAT: Pupils equal and reactive to light. Sclerae clear. NECK: Supple. CHEST: Heart and lungs clear to auscultation. SKIN: Reveals the presence of multiple small scattered raised bullae to be noted on the upper and lower extremities, also noted on the back and upper anterior chest region. There is a large bullous formation on the plantar surface of the right foot measuring 9 x 5 cm. There is some tenderness to palpation in this region. There is no peripheral edema noted. No signs of any petechia or ecchymosis present. There are no excoriations or pustular formation present. NEUROLOGIC EXAMINATION: The patient is alert, follows commands. No apparent focal neurological deficits noted. IMPRESSION: 1. Bullous formation right foot. 2. Rule out bullous pemphigoid. PLAN: At this time, the bullae formation on the right foot did require debridement. This was performed using scissors and forceps. A gelatinous material inside was present. The site was cultured. The area will be dressed with Xeroform, Aquacel, and gauze changed daily. The patient will continue to be monitored while an inpatient. It is my recommendation the patient also have a dermatology consultation to determine further the etiology of the diffuse bullae formation. This represented a nonexcisional debridement of 45 square cm.
--- NOTE | 2016-05-14 12:42 | Clinical Documentation Query ---
CLINICAL DOCUMENTATION QUERY Dr. DAVALOS, H/P documentation initially: DARIO which codes to a renal failure diagnosis. Further progress notes: Acute on chronic renal insufficiency which will code to a nonspecific kidney/urinary tract diagnosis which may not reflect the severity of the patient's medical condition. Review of EMR showed pt with a baseline Cr 0.95/GFR 83.7 in March 2016 In your clinical opinion is this patient being managed for: ( X ) Acute kidney failure on CKD stage 2 ( ) Other explanation of clinical findings (Please Explain) ( ) Unable to determine (Please Define) ( ) Need to Discuss ( ) Not Agree Please clarify and document your clinical opinion in the progress notes and discharge summary. Terms such as "probable", "suspected", "likely", "questionable", "possible", or "still to be ruled out" are acceptable. IF IN AGREEMENT, YOU MUST DOCUMENT ABOVE DIAGNOSTIC STATEMENT IN DAILY PROGRESS NOTES AND DISCHARGE SUMMARY. This document is not part of the patient's record. Thank You, Kyara Keys, RN [phone]
[2016-05-14 15:33] VITALS: BP 114/68; PULSE 78; TEMP 36.5; O2SAT 99
--- NOTE | 2016-05-14 16:00 | Hospitalist Progress Note ---
Hospitalist Progress Note Date of Service May 14, 2016. Subjective Pt evaluation today including: conversation w/ patient, physical exam, chart review, lab review, review of studies, review of inpatient medication list Patient pointing to rash that is causing him pruritis. I ordered IV Benadryl and a single dose of Solu medrol. He remains NPO as I await contact with [employer] who is his legal guardian. Additional Comments: Unable to assess secondary to dementia. Objective Vital Signs Date Time Temp Pulse Resp B/P Pulse Ox O2 Delivery O2 Flow Rate FiO2 05/14/16 08:00 Room Air 05/14/16 07:22 36.7 81 20 122/69 98 Room Air 05/14/16 00:00 Room Air 05/13/16 23:52 36.6 82 20 119/73 96 Room Air 05/13/16 16:10 Room Air Physical Exam Notes: GEN: Awake. Mild distress secondary to itching. HEENT: Tm's intact, no inflammation, EOMI, PERRLA, MMM Neck: Soft, supple Lungs: CTA b/l, no r/r/w Heart: REG, nrl S1S2 without murmurs, rubs or gallops Abdomen: Soft, NT, ND, + BS EXT: No C/C/E NEURO: CN's II-XII grossly intact, non-focal Skin: Diffuse rash some of which have blisters. PSYCH: confusion, very little communication. Laboratory Results Last 24 Hours Test 05/14/16 05:54 White Blood Count 13.43 K/uL Red Blood Count 4.95 M/uL Hemoglobin 14.4 g/dL Hematocrit 42.2 % Mean Corpuscular Volume 85.3 fL Mean Corpuscular Hemoglobin 29.1 pg Mean Corpuscular Hemoglobin Concent 34.1 g/dl RDW Standard Deviation 42.4 fL RDW Coefficient of Variation 13.6 % Platelet Count 345 K/uL Mean Platelet Volume 9.9 fL Assessment and Plan 1) Chronic aspiration - I did just now speak to John at [employer] regarding the options of permissive aspiration vs. Peg tube placement with or without need for tracheostomy. [place] asked that I dictate a consultation explaining the patients conditions and what my recommendations are. I did this and will correct and fax back tomorrow at [phone]. 2) Acute on chronic renal insufficiency - stable, though not at what was previous baseline. 3) COPD - I feel he is controlled currently 4) Alzheimer's Dementia - with component of Alcohol induced dementia. - Patient is not competent to make decisions for himself. 5) Diffuse CVD Continue IVF until we get further recommendations from guardian.
--- NOTE | 2016-05-14 16:21 | HOSPITALIST PROGRESS NOTE ---
DATE: 05/14/2016 GUARDIANSHIP: [employer]. To Whom It May Concern, Mr Diggs is a 65-year-old male that is currently admitted to [facility]. He has been found to be aspirating during swallowing. The aspiration occurs with both thin and thickened liquids. Eating and drinking places the patient at risk for aspiration pneumonia and/ or chemical pneumonitis. Mr. Diggs has underlying Alzheimer's dementia and alcohol induced dementia and is not competent to make decisions regarding his medical care. Given these conditions and his other concurrent medical issues to include cerebral vascular disease, COPD, and chronic renal insufficiency, it is my recommendation that he be permitted to eat and drink at his leisure allowing for "permissive aspiration". I feel this would provide a degree of quality of life for Mr. Diggs. In the event he were to develop a life threatening pneumonia, which is quite possible, I believe he would be best served in a hospice setting. This way he would be made comfortable allowing nature to take its course. Thank you. Dr. Kailash Martínez D.O., hospitalist [facility]
[2016-05-14 23:31] VITALS: BP 116/58; PULSE 74; TEMP 36.3; O2SAT 96
[2016-05-15] MEDS: D5W AND 1/2NSS 1,000 ML IV SCH ×2 (06:13→17:59)
[2016-05-15 07:41] VITALS: BP 117/68; PULSE 66; TEMP 36.7; O2SAT 97
[2016-05-15] MEDS ORDERED: METHYLPREDNISOLONE IV 60 MG in SYRINGE 0 ML IV STA (09:08)
[2016-05-15] MEDS: DiphenhydrAMINE HCL 50 MG/ML VIAL IV PRN ×3 (09:12→17:58)
--- NOTE | 2016-05-15 12:52 | Hospitalist Progress Note ---
Hospitalist Progress Note Date of Service May 15, 2016. Subjective Pt evaluation today including: conversation w/ patient, physical exam, chart review, lab review, review of studies, review of inpatient medication list Patient reports itch sensation with rash. I did dictate, sign, and fax letter John (guardian customer account representative). If this is agreeable then we can allow patient to eat and drink with the understanding of permissive aspiration. Additional Comments: A 10 system review was performed and all were negative. Positives were placed in the subjective section. Objective Vital Signs Date Time Temp Pulse Resp B/P Pulse Ox O2 Delivery O2 Flow Rate FiO2 05/15/16 08:11 Room Air 05/15/16 07:41 36.7 66 18 117/68 97 Room Air 05/15/16 00:15 Room Air 05/14/16 23:31 36.3 74 16 116/58 96 Room Air 05/14/16 16:00 Room Air 05/14/16 15:33 36.5 78 17 114/68 99 Room Air Physical Exam Notes: GEN: Awake, alert.. Not in acute distress HEENT: Tm's intact, no inflammation, EOMI, PERRLA, MMM Neck: Soft, supple Lungs: CTA b/l, no r/r/w Heart: REG, nrl S1S2 without murmurs, rubs or gallops Abdomen: Soft, NT, ND, + BS EXT: No C/C/E NEURO: CN's II-XII grossly intact, non-focal Skin: diffuse rash with blister formation. PSYCH: demented, no agitation. Assessment and Plan 1) Chronic aspiration - Letter sent to [place] at [employer] [facility] [employer] regarding the options of permissive aspiration. Will await response. fax [phone]. 2) Acute on chronic renal insufficiency - stable, though not at what was previous baseline. 3) COPD - stable 4) Alzheimer's Dementia - with component of Alcohol induced dementia. - Patient is not competent to make decisions for himself. 5) Diffuse CVD 6) Diffuse rash my differential includes Bullous pemphigoid, dermatitis herpetiformis, bullous erythema multiforme, and bullous lupus. I did give another dose of IV steroid and await decision on being able to treat with oral medication. Continue IVF until we get further recommendations from guardian.
[2016-05-15 15:04] VITALS: BP 110/64; PULSE 71; TEMP 37; O2SAT 98
[2016-05-15] MEDS: MoRPHine SULFATE 2 MG/ML CARP IV PRN (16:16)
[2016-05-15 23:39] VITALS: BP 122/58; PULSE 67; TEMP 36.8; O2SAT 96
[2016-05-16 07:17] VITALS: BP 95/57; PULSE 80; TEMP 36.7; O2SAT 99
[2016-05-16 07:20] LABS: BUN/CREATININE RATIO 14.1 (10-20); CALCIUM 7.9 mg/dl (8.5-10.1); CREATININE 2.8 mg/dl (0.60-1.40); POTASSIUM 4.3 mmol/L (3.5-5.1)
[2016-05-16] MEDS: D5W AND 1/2NSS 1,000 ML IV SCH (07:25)
[2016-05-16] MEDS: MoRPHine SULFATE 2 MG/ML CARP IV PRN (10:43)
[2016-05-16 10:56] VITALS: BP 110/62; PULSE 80; O2SAT 95
--- NOTE | 2016-05-16 12:17 | Hospitalist Progress Note ---
Hospitalist Progress Note Date of Service May 16, 2016. Subjective Pt evaluation today including: conversation w/ patient, physical exam, chart review, lab review, review of studies, review of inpatient medication list Bullous rash has not improved perhaps even more pronounced than yesterday. Although I did feel that the wound cult showing a rare coag neg staph was just skin sarai, I feel compelled to treat now in the event that infection is source or secondary cause of the rash. With his PCN allergy I will order Doxy. Additional Comments: Less itching per patient. But take into account his underlying dementia when questioning patient. Otherwise, a 10 system review was performed and all were negative. Objective Vital Signs Date Time Temp Pulse Resp B/P Pulse Ox O2 Delivery O2 Flow Rate FiO2 05/16/16 11:24 Room Air 05/16/16 10:56 80 95 05/16/16 07:17 36.7 80 18 95/57 99 Room Air 05/16/16 00:28 Room Air 05/15/16 23:39 36.8 67 20 122/58 96 Room Air 05/15/16 16:20 Room Air 05/15/16 15:04 37.0 71 18 110/64 98 Room Air Physical Exam Notes: GEN: Awake, alert.. Not in acute distress HEENT: Tm's intact, no inflammation, EOMI, PERRLA, MMM Neck: Soft, supple Lungs: CTA b/l, no r/r/w Heart: REG, nrl S1S2 without murmurs, rubs or gallops Abdomen: Soft, NT, ND, + BS EXT: No C/C/E NEURO: CN's II-XII grossly intact, non-focal Skin: diffuse rash papules and blister formation. with his natural skin coloration it is difficult to qualify intensity of erythema. PSYCH: demented, no agitation. Laboratory Results Last 24 Hours Test 05/16/16 06:33 Sodium Level 143 mmol/L Potassium Level 4.3 mmol/L Chloride Level 115 mmol/L Carbon Dioxide Level 18 mmol/L Anion Gap 10.0 mmol/L Blood Urea Nitrogen 40 mg/dl Creatinine 2.80 mg/dl Est Creatinine Clear Calc Drug Dose 24.3 ml/min Estimated GFR () 26.2 Estimated GFR (Non- 22.6 BUN/Creatinine Ratio 14.1 Random Glucose 139 mg/dl Calcium Level 7.9 mg/dl Assessment and Plan 1) Chronic aspiration - Letter faxed on 05/15 to [place] at [facility] regarding the options of permissive aspiration. Will await response. fax number- [phone]. 2) Renal insufficiency has not improved if not worsened despite continued IV hydration. I am concerned that something more ominous is resultant. I will ask nephrology for opinion. 3) COPD - stable 4) Alzheimer's Dementia - with component of Alcohol induced dementia. - Patient is not competent to make decisions for himself. 5) Cerebral vascular disease - evidence of previous lacunar/thalamic strokes on CT scan. 6) Diffuse rash with blistering and pruritus - My differential includes Bullous pemphigoid, dermatitis herpetiformis, bullous erythema multiforme, and bullous lupus. Dermatology agreed to see and evaluate patient which I greatly appreciate. I will add IV doxycycline today based on a wound culture that showed a rare growth of coag neg staph. Initially I felt this represented skin sarai contaminant, but with continued rash despite IV steroid for 48 hours I feel inclined to treat. I recall that Dapsone is used for some bullous rash disease processes, but this is beyond my expertise. Continue IVF until we get further recommendations from guardian.
[2016-05-16] MEDS ORDERED: DOXYCYCLINE IV 100 MG in DEXTROSE 5% 100ML 100 ML IV SCH (12:30)
--- NOTE | 2016-05-16 13:23 | Medical Consult ---
Consultation Note Date of Service May 16, 2016. Consultation Note S: 66 YO B male poor historian apparently was admitted with a progressive rash with blistering. Pt states it is somewhat pruritic. Review of notes appears to be progressive. :O: Pt in no apparent discomfort or distress. Examination demonstrates a widespread dermatitic eruption on trunkk and extremities with tense blistes on non inflammatory bases. The trunk appears to be more vessicular. His head and neck are spares . A. Bullous erution. Etiology to be determined . P: Explained procedure to patient and to his POA over the phone. Areas on abdomen and rt arm cleaned. 1% lidocaine with epinephrine used for local and punch biopsies performed for DIF and H and E. Case discussed with Dr. Martínez. Pt is NPO at this time. Isuggest the pt get IV equivelent of Prednisone 1 mg/kg/day Cool compresses BID Triamcinalone 0.1% ointment BID Neto Pike M.D> Dermatologyb
[2016-05-16] MEDS ORDERED: METHYLPREDNISOLONE IV 10 MG in SYRINGE 0 ML IV SCH ×2 (14:00→20:00)
--- NOTE | 2016-05-16 14:13 | Nephrology Consultation ---
Nephrology Consultation Date & Providers Date of Consultation: May 16, 2016. Primary Care Provider: [facility] Referring Provider: Reason for Consultation Acute on chronic renal insufficiency History of Present Illness Mr. Dimitry Diggs is a 65-year-old male who was seen and evaluated this afternoon at the request of Dr. Martínez. Mr. Diggs was admitted to [facility] on May 11 from [facility]. Medical records in the EMR reviewed in detail today. Renal ultrasound and chest x-ray were personally reviewed. Mr. Diggs was previously admitted in October 2014 with acute systolic congestive heart failure associated with a mild global hypokinesis and dilated cardiomyopathy. Left ventricular function appeared to be improving. Patient had declined cardiac catheterization at that time. He also suffered episodes of supraventricular tachycardia at that time. EKG documenting prolonged QT. There was a reported fall at the senior care prior to the current admission. No significant trauma/injury was reported. The patient has documented dementia and is a poor historian. There is a significant history of aspiration for which he was maintained on a honey thickened diet as an outpatient. An ongoing discussion regarding permissive aspiration to preserve quality of life has been established between Dr. Martínez and the patient's family. Baseline functional status is reported to be limited due to degenerative joint disease and degenerative disc disease in his lumbar spine. At the time of my evaluation, Mr. Diggs's primary concern was is diffuse bullous rash, feeling cold and generalized pruritus. Both lesions have been present for at least 1-2 weeks. Debridement of the bullous lesion on the right foot was performed during this hospitalization by Dr. Bearden. Culture growing coagulase negative Staph. The patient was started on doxycycline. Skin biopsy performed by Dermatology today. Empiric steroids have been started. Baseline kidney function is reported with a serum creatinine 0.9 milligrams/ deciliter in March 2016. In April creatinine was ranging from 1.9-2. Patient was admitted with serum creatinine 2.1 milligram/deciliter. Urinalysis at that time was bland with acellular microscopy. Renal ultrasound showed cortical thinning but no acute changes and no evidence of obstruction. Fractional excretion of sodium was less than 1. IV fluids were started the maintained slow hydration. Creatinine remains stable for the initial days of the hospitalization. On May 13 creatinine increased to 2.5 milligram/ deciliter. This morning creatinine is 2.8 milligram/deciliter. Metabolic profile is also notable for mild metabolic acidosis with a bicarbonate of 18. Electrolytes are otherwise appropriate. Past Medical/Surgical History Medical: Atrial fibrillation not on anticoagulation with history of SVT documents during hospitalization in October 2014. Dilated cardiomyopathy, patient had refused cardiac catheterization in the past. Degenerative joint disease and degenerative disc disease. GERD. History of tobacco abuse. History of alcohol abuse. Dementia, Alzheimer's type. Dysphasia with aspiration. Surgical: None reported Allergies Coded Allergies: Penicillins (Verified Allergy, Unknown, RASH, 04/29/16) Inpatient Medications Current Inpatient Medications Medications (Trade) Dose Ordered Sig/Chel Route Start Time Stop Time Status Last Admin Dose Admin Miscellaneous Information (Order Awaiting Action) 1 ea QS N/A 05/11/16 16:00 06/10/16 15:59 Morphine Sulfate 1 mg 1 mg Q8H PRN IV 05/11/16 11:00 05/25/16 10:59 05/16/16 10:43 1 MG Dextrose/Sodium Chloride (D5W And 1/2nss) 1,000 ml @ 125 mls/hr Q8H IV 05/13/16 16:15 06/12/16 16:14 05/16/16 07:25 80 MLS/HR Ondansetron HCl (Zofran Inj) 4 mg Q6H PRN IV 05/13/16 16:15 06/12/16 16:14 Diphenhydramine HCl 25 mg 25 mg Q4 PRN IV 05/14/16 08:30 06/13/16 08:29 05/15/16 17:58 25 MG Doxycycline Hyclate 100 mg/ Dextrose 110 ml @ 50 mls/hr Q12H IV 05/16/16 12:30 05/26/16 12:29 05/16/16 13:07 50 MLS/HR Methylprednisolone Sodium Succinate 10 mg/Syringe 0.25 ml @ 1.5 mls/min Q8H IV 05/16/16 14:00 06/15/16 13:59 Sodium Bicarbonate/ Dextrose/Sodium Chloride (Sodium Bicarbonate 8.4% Inj/D5W And 1/ 2nss) 1,050 ml @ 100 mls/hr [id number] IV 05/16/16 13:45 06/15/16 13:44 UNV Family History No pertinent family history Social History Smoking Status: Former Smoker (reoprts he gave it up a year ago) Alcohol Use: h/o heavy alcohol use, unable to give more details Drug Use: none Marital Status: single Housing Status: lives alone Occupation: unemployed Review of Systems A complete review of systems was performed. Pertinent positives are noted above. All other systems are negative. Physical Exam Date Time Temp Pulse Resp B/P Pulse Ox O2 Delivery O2 Flow Rate FiO2 05/16/16 11:24 Room Air 05/16/16 10:56 80 95 05/16/16 07:17 36.7 80 18 95/57 99 Room Air 05/16/16 00:28 Room Air 05/15/16 23:39 36.8 67 20 122/58 96 Room Air 05/15/16 16:20 Room Air 05/15/16 15:04 37.0 71 18 110/64 98 Room Air General Appearance: no apparent distress, + thin Head: normocephalic, atraumatic Eyes: normal inspection, sclerae normal ENT: normal ENT inspection, + pertinent finding (No oral lesions appreciated. Oral mucosa dry.) Neck: supple, + pertinent finding (JVP 8 centimeters) Respiratory/Chest: lungs clear, no respiratory distress, no accessory muscle use, + rales (Few at the right base) Cardiovascular: regular rate, rhythm, no gallop, no murmur Abdomen/GI: non tender, soft Back: normal inspection, no CVA tenderness Extremities/Musculoskelatal: normal capillary refill, no pedal edema Neurologic/Psych: alert, + depressed affect, + pertinent finding (No tremor) Skin: + pertinent finding (Diffuse bullous lesions involving the trunk and extremities with small superficial ulcerations) Laboratory Results Last 24 Hours Test 05/16/16 06:33 Sodium Level 143 mmol/L Potassium Level 4.3 mmol/L Chloride Level 115 mmol/L Carbon Dioxide Level 18 mmol/L Anion Gap 10.0 mmol/L Blood Urea Nitrogen 40 mg/dl Creatinine 2.80 mg/dl Est Creatinine Clear Calc Drug Dose 24.3 ml/min Estimated GFR () 26.2 Estimated GFR (Non- 22.6 BUN/Creatinine Ratio 14.1 Random Glucose 139 mg/dl Calcium Level 7.9 mg/dl Impression (1) Acute renal insufficiency (2) Chronic kidney disease, stage III (moderate) (3) Bullous skin disease (4) Dementia (5) Aspiration of liquid (6) Cardiomyopathy Mr. Dimitry Diggs is a 65-year-old male with dementia, ongoing aspiration of liquids, history of supraventricular tachycardia, cardiomyopathy, debilitation, and chronic kidney disease. Baseline creatinine in March was 0.9 milligram/ deciliter. In April creatinine had increased to approximately 2 milligram/ deciliter. He was admitted to [facility] on May 11 with diffuse bullous skin lesions, DARIO and recent fall. Due to aspiration prior to admission he was felt to be dehydrated and given IV fluids. He was started on IV fluids early during his hospitalization. An ongoing discussion between the patient's family and Dr. Martínez regarding permissive aspiration has been initiated. In the interim, the patient has evidence of at least intravascular volume depletion. He has relative hypotension. Medications are appropriate for renal function. Unfortunately, renal function has decline over the past few days. There is no documented oliguria. I reviewed urine studies and renal ultrasound obtained earlier during the hospitalization. Repeat urine studies have been requested today. I have also restarted IVF with D5 1/2NS + HCO3. I would suggest maintaining a slightly positive fluid balance. I will repeat a metabolic profile tomorrow AM. Skin biopsy results pending. Recommendations 1. D5 1/2NS + 50 mEq HCO3 @ 100 ml/hr 2. Document I/O's 3. Repeat UA/microscopy and urine sodium 4. Bladder scan for potential urinary retention 5. Encourage nutrition in the midst of discussion regarding goals of care
[2016-05-16] MEDS ORDERED: SODIUM BICARBONATE 8.4% INJ 50 MEQ in D5W AND 1/2NSS 1,000 ML IV SCH (14:15)
[2016-05-16 16:47] VITALS: PULSE 72; TEMP 36.5; O2SAT 99
[2016-05-16] MEDS ORDERED: CEFTRIAXONE SOD 350MG/ML 1 GM VIAL IM SCH (17:30)
[2016-05-16] MEDS ORDERED: ONDANSETRON INJ 2 MG/ML 2 ML VIAL IM PRN (17:30)
[2016-05-16] MEDS ORDERED: CEFTRIAXONE SOD IM 1,000 MG in SYRINGE 0 ML IM SCH (19:00)
[2016-05-16] MEDS ORDERED: METHYLPREDNISOLONE 1000 MG/16 ML IM SCH (20:00)
[2016-05-16] MEDS: TRIAMCINOLONE ACET 0.1% OINT 15 GM TUBE EXT SCH (20:01)
[2016-05-16] MEDS: DiphenhydrAMINE HCL 50 MG/ML VIAL IM PRN (20:01)
[2016-05-16 23:27] VITALS: BP 96/65; PULSE 86; TEMP 36.4; O2SAT 97
[2016-05-17 00:33] LABS: URINE APPEARANCE CLEAR (CLEAR); URINE BILIRUBIN NEG (NEG); URINE COLOR YELLOW; URINE EPITHELIAL CELL AUTO >30 /lpf (0-5); URINE NITRITE NEG (NEG); URINE PH 5.5 (4.5-7.5); URINE SPECIFIC GRAVITY 1.014 (1.000-1.030); UROBILINOGEN NEG (NEG)
[2016-05-17 00:39] LABS: MANUAL MICROSCOPIC REQUIRED? NO; REVIEW REQ? YES
[2016-05-17 00:48] LABS: UREA NITROGEN RANDOM URINE 794 mg/dl
--- NOTE | 2016-05-17 05:23 | Surgery Progress Note ---
Surgery Progress Note Date of Service May 17, 2016. Subjective asked about IV access Objective Vital Signs: Date Time Temp Pulse Resp B/P Pulse Ox O2 Delivery O2 Flow Rate FiO2 05/17/16 00:01 Room Air 05/16/16 23:27 36.4 86 20 96/65 97 Room Air 05/16/16 20:00 Room Air 05/16/16 16:47 36.5 72 16 99 05/16/16 16:30 Room Air 05/16/16 11:24 Room Air 05/16/16 10:56 80 95 05/16/16 07:17 36.7 80 18 95/57 99 Room Air Laboratory Results: Results Past 24 Hours Test 05/16/16 06:33 05/16/16 23:40 05/17/16 04:44 Range/Units Sodium Level 143 136-145 mmol/L Potassium Level 4.3 3.5-5.1 mmol/L Chloride Level 115 98-107 mmol/L Carbon Dioxide Level 18 21-32 mmol/L Anion Gap 10.0 3-11 mmol/L Blood Urea Nitrogen 40 7-18 mg/dl Creatinine 2.80 0.60-1.40 mg/dl Est Creatinine Clear Calc Drug Dose 24.3 ml/min Estimated GFR () 26.2 Estimated GFR (Non- 22.6 BUN/Creatinine Ratio 14.1 10-20 Random Glucose 139 70-99 mg/dl Calcium Level 7.9 8.5-10.1 mg/dl Urine Color YELLOW Urine Appearance CLEAR CLEAR Urine pH 5.5 4.5-7.5 Urine Specific [place] 1.014 1.000-1.030 Urine Protein NEG NEG Urine Glucose (UA) NEG NEG Urine Ketones NEG NEG Urine Occult Blood NEG NEG Urine Nitrite NEG NEG Urine Bilirubin NEG NEG Urine Urobilinogen NEG NEG Urine Leukocyte Esterase SMALL NEG Urine WBC (Auto) 10-30 0-5 /hpf Urine RBC (Auto) 0-4 0-4 /hpf Urine Hyaline Casts (Auto) 5-10 0-5 /lpf Urine Epithelial Cells (Auto) >30 0-5 /lpf Urine Bacteria (Auto) NEG NEG Urine Renal Epithelial Cells 0-5 /lpf Urine Random Sodium 15 mEq/L Urine Random Urea Nitrogen 794 mg/dl Microbiology Results 05/16/16 Gram Stain, Received Pending 05/16/16 Bacterial Culture, Received Pending Assessment & Plan 05/17/16- pt may need short term IV access- does not require port. If needed , would consult anesthesia for iv access- they could possibly place a peripheral IV or central line. Discussion last pm with Dr Martínez was to hold off for now
[2016-05-17 08:25] VITALS: BP 108/70; PULSE 88; TEMP 36.6; O2SAT 98
[2016-05-17] MEDS: TRIAMCINOLONE ACET 0.1% OINT 15 GM TUBE EXT SCH (08:47)
[2016-05-17] MEDS: DiphenhydrAMINE HCL 50 MG/ML VIAL IM PRN (08:47)
[2016-05-17] MEDS ORDERED: HYDROmorphone INJ 1 MG/ML SYR IM PRN (10:00)
[2016-05-17] MEDS ORDERED: HYDROmorphone INJ 0.5 MG/0.5 ML SYR IM PRN (10:00)
--- NOTE | 2016-05-17 11:31 | Nephrology Progress Note ---
Nephrology Progress Note Date of Service May 17, 2016. Chief Complaint Acute on chronic renal insufficiency Subjective Mr. Diggs was seen this morning. He answered questions with a few simple words. He denied pain. I discussed the overall prognosis and plan of care with Dr. Martínez. Overall, no IV access. No plan for enteral feeding. Mr. Diggs will tolerate some permissive aspiration. Goals of care are predominately to be palliative. Review of Systems A complete review of systems was performed. Pertinent positives are noted above. All other systems are negative. Vital Signs Last 8 Hrs Date Time Temp Pulse Resp B/P Pulse Ox O2 Delivery O2 Flow Rate FiO2 05/17/16 09:59 Room Air 05/17/16 08:25 36.6 88 20 108/70 98 Room Air I & O 24-Hour Column 05/17/16 08:00 Intake Total 582 ml Output Total 750 ml Balance -168 ml Last Recorded Weight Weight (Kilograms): 65.300 Physical Exam General Appearance: no apparent distress, + thin Head: normocephalic, atraumatic Eyes: normal inspection, sclerae normal ENT: normal ENT inspection, pharynx normal Neck: supple, no JVD Respiratory/Chest: no respiratory distress, no accessory muscle use Cardiovascular: regular rate, rhythm, no gallop Abdomen/GI: non tender, soft Extremities/Musculoskelatal: + pertinent finding (Diffuse bullous skin lesions) Neurologic/Psych: + depressed affect, + disoriented Family History No pertinent family history Social History Smoking Status: Current every day smoker Alcohol Use: h/o heavy alcohol use, unable to give more details Drug Use: none Marital Status: single Housing Status: lives alone Occupation: unemployed Laboratory Results Past 24 Hours Test 05/16/16 23:40 05/17/16 04:44 Urine Color YELLOW Urine Appearance CLEAR (CLEAR) Urine pH 5.5 (4.5-7.5) Urine Specific [place] 1.014 (1.000-1.030) Urine Protein NEG (NEG) Urine Glucose (UA) NEG (NEG) Urine Ketones NEG (NEG) Urine Occult Blood NEG (NEG) Urine Nitrite NEG (NEG) Urine Bilirubin NEG (NEG) Urine Urobilinogen NEG (NEG) Urine Leukocyte Esterase SMALL (NEG) Urine WBC (Auto) 10-30 /hpf (0-5) Urine RBC (Auto) 0-4 /hpf (0-4) Urine Hyaline Casts (Auto) 5-10 /lpf (0-5) Urine Epithelial Cells (Auto) >30 /lpf (0-5) Urine Bacteria (Auto) NEG (NEG) Urine Renal Epithelial Cells /lpf (0-5) Urine Random Sodium 15 mEq/L Urine Random Urea Nitrogen 794 mg/dl Allergies Coded Allergies: Penicillins (Verified Allergy, Unknown, RASH, 04/29/16) Medications Current Inpatient Medications Medications (Trade) Dose Ordered Sig/Chel Route Start Time Stop Time Status Last Admin Dose Admin Miscellaneous Information (Order Awaiting Action) 1 ea QS N/A 05/11/16 16:00 06/10/16 15:59 Triamcinolone Acetonide (Kenalog 0.1% Oint) 1 appln BID EXT 05/16/16 20:00 06/15/16 19:59 05/17/16 08:47 1 APPLN Diphenhydramine HCl (Benadryl Inj) 50 mg Q6 PRN IM 05/16/16 17:00 06/15/16 16:59 05/17/16 08:47 50 MG Ondansetron HCl (Zofran Inj) 4 mg Q6H PRN IM 05/16/16 17:30 06/15/16 17:29 Methylprednisolone Sodium Succinate 80 mg 80 mg Q24H IM 05/16/16 20:00 06/15/16 19:59 05/16/16 20:02 80 MG Ceftriaxone Sodium/Syringe (Rocephin Im/ Syringe) 2.8571 ml @ 0 mls/min Q24H IM 05/16/16 19:00 05/26/16 18:59 05/16/16 18:46 2.5 MLS/MIN Hydromorphone HCl (Dilaudid Inj) 0.5 mg Q3HWA PRN IM 05/17/16 10:00 05/31/16 09:59 Hydromorphone HCl (Dilaudid Inj) 1 mg Q3HWA PRN IM 05/17/16 10:00 05/31/16 09:59 Impression (1) Acute renal insufficiency (2) Chronic kidney disease, stage III (moderate) (3) Bullous skin disease (4) Dementia (5) Aspiration of liquid (6) Cardiomyopathy Mr. Dimitry iDggs is a 65-year-old male with dementia, ongoing aspiration of liquids, history of supraventricular tachycardia, cardiomyopathy, debilitation, and chronic kidney disease. Baseline creatinine in March was 0.9 milligram/ deciliter. In April creatinine had increased to approximately 2 milligram/ deciliter. He was admitted to [facility] on May 11 with diffuse bullous skin lesions, DARIO and recent fall. Clinical presentation and urine studies consistent with prerenal DARIO due to dehydration and intravascular volume depletion. Medications are appropriate for renal function. Plan of care and goals of care do not include IVF. Palliative care initiated with permissive aspiration. Recommendations Nephrology will sign off. If additional recommendations are needed please reconsult.
[2016-05-17 11:47] VITALS: BP 108/70; PULSE 88; TEMP 36.4; O2SAT 98
[2016-05-17] MEDS ORDERED: DIPH1TAB PO (14:13)
[2016-05-17] MEDS ORDERED: TRMO115 EXT (14:13)
[2016-05-17] MEDS ORDERED: DOXY-300 PO (14:13)
[2016-05-17] MEDS ORDERED: PRD20 PO (14:13)
--- NOTE | 2016-05-17 14:24 | Discharge Instructions ---
Discharge Instructions Date of Service May 17, 2016. Admission Reason for Admission: Renal Failure Discharge Discharge Diagnosis / Problem: Acute on chronic CKD stage III/chronic aspiration/Bullous rash Discharge Goals Goal(s): Decrease discomfort, Improve disease control Activity Recommendations Activity Limitations: resume your previous activity . Instructions / Follow-Up Instructions / Follow-Up PCP in 5-7 days. Dermatology - Dr. Neto Pike in 10-14 days Current Hospital Diet Patient's current hospital diet: Regular Diet Discharge Diet Recommended Diet: Regular Diet Diet Texture: Dental Soft (bite-sized) Procedures Procedures Performed: skin biopsies. Pending Studies Studies pending at discharge: yes (pathology report of skin biopsies.) List of pending studies: Pathology of skin biopsies. This will likely be resulted to you at follow up appointment with communications representative. Laboratory Results Last 24 Hours Test 05/16/16 23:40 Urine Color YELLOW Urine Appearance CLEAR Urine pH 5.5 Urine Specific [place] 1.014 Urine Protein NEG Urine Glucose (UA) NEG Urine Ketones NEG Urine Occult Blood NEG Urine Nitrite NEG Urine Bilirubin NEG Urine Urobilinogen NEG Urine Leukocyte Esterase SMALL Urine WBC (Auto) 10-30 /hpf Urine RBC (Auto) 0-4 /hpf Urine Hyaline Casts (Auto) 5-10 /lpf Urine Epithelial Cells (Auto) >30 /lpf Urine Bacteria (Auto) NEG Urine Renal Epithelial Cells /lpf Urine Random Sodium 15 mEq/L Urine Random Urea Nitrogen 794 mg/dl Lipid Panel Test 05/13/16 06:33 Range/Units Triglycerides Level 92 0-150 mg/dl Cholesterol Level 132 0-200 mg/dl HDL Cholesterol 37 mg/dl Cholesterol/HDL Ratio 3.6 LDL Cholesterol, Calculated 77 mg/dl Medical Emergencies . Who to Call and When: Medical Emergencies: If at any time you feel your situation is an emergency, please call 911 immediately. . Non-Emergent Contact Non-Emergency issues call your: Primary Care Provider . . "Provider Documentation" section prepared by Kailash Martínez. VTE Core Measure Inpt VTE Proph given/why not?: Unfractionated heparin SQ (Heparin then d/c'd in event this was causing rash. )
--- NOTE | 2016-05-17 15:03 | Discharge Summary ---
Discharge Summary Date of Service May 17, 2016. Discharge Summary Admission Date: May 11, 2016 at 10:59 Discharge Date: May 17, 2016 Discharge Disposition: Personal care Principal Diagnosis: Acute on CKD stage III Problems/Secondary Diagnoses: Diffuse bullous rash/chronic aspiration/dementia Immunizations: Have You Had Influenza Vaccine: No History of Tetanus Vaccine?: UNSURE History of Pneumococcal: No History of Hepatitis B Vaccine: Unknown Procedures: skin biopsies Consultations: Dr. Neto Pike - dermatology Dr. Neto Bearden - intelligence specialist Dr. Anmol Carr - nephrology Dr. Chandu Talbert - general surgery Medication Reconciliation New Medications: Diphenhydramine Hcl (Benadryl Allergy) 25 Mg Tab 25 MG PO Q6 PRN for Itching for 30 Days, #90 0 Refills NS Doxycycline (Monohydrate) (Doxycycline) 100 Mg Cap 100 MG PO BID for 10 Days, #20 0 Refills NS Prednisone (Prednisone) 20 Mg Tab 60 MG PO DAILY for 20 Days, #60 0 Refills NS Triamcinolone Acet (Triamcinolone Acetonide) 45 Appln/15 Gm Oint 1 APPLN EXT BID for 14 Days, #30 GM 0 Refills Continued Medications: Acetaminophen (Tylenol) 325 Mg Tab 650 MG PO Q6H PRN for Pain or Fever, TAB Aspirin (Aspirin EC Low Dose) 81 Mg Ectab 81 MG PO QAM, #30 Baclofen (Lioresal) 10 Mg Tab 10 MG PO Q6 PRN for Muscle Spasms, TAB Carvedilol (Carvedilol) 3.125 Mg Tab 3.125 MG PO BID, #60 TAB Cholecalciferol (Vitamin D3) 2,000 Unit Cap 1 CAP PO DAILY for 90 Days, #90 CAP 3 Refills Docusate Sodium (Docusate Sodium) 100 Mg Cap 100 MG PO BID, #60 CAP Fluticasone Furoate-Vilanterol (Breo Ellipta) 1 Inh Inh 1 PUFF PEG DAILY Hydrocodone/Acetaminophen 5MG/325MG ([place] 5MG/325MG) Tab 1 TABLET PO Q4H while awake, TAB PRN PAIN Sennosides (Senokot) 8.6 Mg Tab 2 TAB PO DAILY, TAB [Magic Cup] () 1 CUP PO TID Discharge Exam + intermittent diffuse itch otherwise a10 system review was performed and all were negative. GEN: Awake, alert. Oriented to person. Not in acute distress HEENT: Tm's intact, no inflammation, EOMI, PERRLA, MMM Neck: Soft, supple Lungs: CTA b/l, no r/r/w Heart: REG, nrl S1S2 without murmurs, rubs or gallops Abdomen: Soft, NT, ND, + BS EXT: No C/C/E NEURO: CN's II-XII grossly intact, non-focal Skin: Diffuse bullous rash with blistering. PSYCH: No agitation, confused. Hospital Course Patient was admitted due to acute on chronic kidney failure. He was given IVF. He was evaluated by speech therapy and was found to have chronic aspiration of thin-thick liquids. The patient was made NPO. Due to dementia, the patient is not able to make decisions for himself. I contacted his guardian, John with [employer] and discussed his situation. I dictated a letter outlining the plan which is allowing Mr. Diggs to eat and drink at his leisure and understand that he will aspirate. Please see letter I dictated on 05-14-16. On a separate issue, the patient presented with a blistering rash which in the first few days of hospitalization had worsened. We d/c'd medications as he was made npo and asked dermatology to see. Biopsies were taken and results are pending at this time. We are considering or rather ruling out Bullous pemphigoid and in the meantime he is being treated with po steroids and cold compresses and topical steroids. I added doxycycline for growth of a coag-neg staph, although this is most likely a skin contaminant. At discharge his renal function worsened but as we are focusing on comfort it was felt that increasing or "pushing" oral hydration would place him at increased risk for aspiration pneumonia. I would argue that no further labs be drawn on the patient, but I had not specifically spoke with the guardian about that. I did update John that the patient will be discharged today. I do feel that a follow up with dermatology is appropriate to improve his quality of life by reducing the discomfort of itching. ed for some bullous rash disease processes, but this is beyond my expertise. Patient intitially received sub-q heparin for DVT prophylaxis, but this was D/C' d in event it was contributing to rash. Total Time Spent: Greater than 30 minutes This includes examination of the patient, discharge planning, medication reconciliation, and communication with other providers. Discharge Instructions Please refer to the electronic Patient Visit Report (Discharge Instructions) for additional information. Follow-Up Dermatology - Dr. Neto Pike in 10-14 days. PCP in 5-7 days.
== END 2016-05-17 15:55 | DRG 682 ==
LOC: C.4E 05-11 09:26 → OBSVTOIN 05-11 10:59
PROVIDERS: ADMIT Hospitalist; ATTEND Hospitalist
PROC: 0HDMXZZ Extraction of Right Foot Skin, External Approach (ICD-10-PCS; principal; 2016-05-16)
PROC: 0HB7XZX Excision of Abdomen Skin, External Approach, Diagnostic (ICD-10-PCS; 2016-05-16)
DX: N17.9 Acute kidney failure, unspecified (principal); J69.0 Pneumonitis due to inhalation of food and vomit; E87.2 Acidosis; I42.0 Dilated cardiomyopathy; I48.3 Typical atrial flutter; I48.91 Unspecified atrial fibrillation; K21.9 Gastro-esophageal reflux disease without esophagitis; M19.90 Unspecified osteoarthritis, unspecified site; G30.9 Alzheimer's disease, unspecified; F02.80 Dementia in other diseases classified elsewhere, unspecified severity, without behavioral disturbance, psychotic disturbance, mood disturbance, and anxiety; Z87.891 Personal history of nicotine dependence; Z79.82 Long term (current) use of aspirin; Z79.899 Other long term (current) drug therapy; J44.9 Chronic obstructive pulmonary disease, unspecified; Z88.0 Allergy status to penicillin; E86.1 Hypovolemia; N18.2 Chronic kidney disease, stage 2 (mild); R21 Rash and other nonspecific skin eruption; R79.89 Other specified abnormal findings of blood chemistry; M62.81 Muscle weakness (generalized); R41.82 Altered mental status, unspecified

== ENCOUNTER → 2016-05-10 | Outpatient (CLI) | payer OTHER ==
[2016-05-10 08:51] LABS: BASO ABS # 0.08 K/uL (0-0.2); COMPLETE YES; EOS % 19.1 %; HEMATOCRIT 37.8 % (42-52); IG% 0.5 %; LYMPH % 25.5 %; LYMPH ABS # 2.05 K/uL (1.2-3.4); MEAN CELL VOLUME 86.1 fL (80-100); MEAN CORPUSCULAR HEMOGLOBIN 28.9 pg (25-34); MEAN CORPUSCULAR HGB CONC 33.6 g/dl (32-36); MEAN PLATELET VOLUME 10.6 fL (7.4-10.4); MONO % 7.6 %; NEUT % 46.3 %; PLATELET COUNT 311 K/uL (130-400); RED BLOOD COUNT 4.39 M/uL (4.7-6.1); WHITE BLOOD COUNT 8.03 K/uL (4.8-10.8)
[2016-05-10 09:00] LABS: BLOOD UREA NITROGEN 35 mg/dl (7-18); BUN/CREATININE RATIO 17.5 (10-20); C-REACTIVE PROTEIN 1.44 mg/dl (0-0.29); CALCIUM 8.8 mg/dl (8.5-10.1); CARBON DIOXIDE 20 mmol/L (21-32); CHLORIDE 112 mmol/L (98-107); GLUCOSE 82 mg/dl (70-99); POTASSIUM 4.5 mmol/L (3.5-5.1); SODIUM 142 mmol/L (136-145)
== END ==
LOC: C.LABUPUNI 08:33
PROVIDERS: ATTEND Family Medicine
DX: I48.3 Typical atrial flutter (principal); R41.82 Altered mental status, unspecified; M62.81 Muscle weakness (generalized)

== ENCOUNTER → 2016-05-11 | Outpatient (CLI) | payer OTHER ==
[~2016-05-11] MED LIST changes: +ACET-1311 PO; +BACL10TA PO; +DIPH1TAB PO; +DOXY-300 PO; +HYDR-5688 PO; +PRD20 PO; +SENN-63 PO; +TRMO115 EXT
[2016-05-11 08:23] LABS: BLOOD UREA NITROGEN 33 mg/dl (7-18); BUN/CREATININE RATIO 17.4 (10-20); CALCIUM 8.6 mg/dl (8.5-10.1); CARBON DIOXIDE 17 mmol/L (21-32); CHLORIDE 113 mmol/L (98-107); GLUCOSE 71 mg/dl (70-99); POTASSIUM 4.6 mmol/L (3.5-5.1); SODIUM 142 mmol/L (136-145)
== END ==
LOC: C.LABUPUNI 10:51
PROVIDERS: ATTEND Family Medicine
DX: R41.82 Altered mental status, unspecified (principal)